=== PATIENT | female | born 1955 | race African-American/Black ===

== ENCOUNTER 2016-11-15 16:47 | Emergency (ER) | payer OTHER ==
[~2016-11-15] VITALS: Ht 172.7 cm; Wt 99.8 kg
[2016-11-15 21:02] VITALS: BP 00/00
== END 2016-11-15 17:01 | disposition expired ==
LOC: ED 16:47
DX: I46.9 Cardiac arrest, cause unspecified (principal)
CPT/HCPCS: J0171; J3490